=== PATIENT | female | born 1945 | race Caucasian/White ===

== ENCOUNTER → 2023-10-08 09:29 | Outpatient (REF) | payer OTHER, SELFPAY | LOC: RAD 09:29 | PROVIDERS: ATTENDING PHYSICIAN Internal Medicine | DX: M81.0 Age-related osteoporosis without current pathological fracture (principal) | CPT/HCPCS: 77080 ==

== ENCOUNTER → 2023-10-22 12:50 | Outpatient (REF) | payer OTHER, SELFPAY | LOC: RAD 12:50 | PROVIDERS: ATTENDING PHYSICIAN Internal Medicine Critical Care Medicine; FAMILY PHYSICIAN Internal Medicine | DX: I82.402 Acute embolism and thrombosis of unspecified deep veins of left lower extremity (principal) | CPT/HCPCS: 93971 ==

== ENCOUNTER → 2023-12-15 11:04 | Outpatient (REF) | payer OTHER, SELFPAY | LOC: HWRAD 11:04 | PROVIDERS: ATTENDING PHYSICIAN Internal Medicine Critical Care Medicine; FAMILY PHYSICIAN Internal Medicine | DX: R91.8 Other nonspecific abnormal finding of lung field (principal) | CPT/HCPCS: 71250 ==

== ENCOUNTER → 2024-07-28 14:12 | Outpatient (REF) | payer OTHER, SELFPAY | LOC: WDC 14:12 | PROVIDERS: ATTENDING PHYSICIAN Internal Medicine | DX: Z12.31 Encounter for screening mammogram for malignant neoplasm of breast (principal) | CPT/HCPCS: 77063; 77067 ==

== ENCOUNTER → 2024-08-09 09:50 | Outpatient (REF) | payer OTHER, SELFPAY | LOC: WDC 09:50 | PROVIDERS: ATTENDING PHYSICIAN Internal Medicine | DX: R92.8 Other abnormal and inconclusive findings on diagnostic imaging of breast (principal) | CPT/HCPCS: 76642 ==